=== PATIENT | female | born 1990 | race Asian ===

== ENCOUNTER 2020-12-09 11:47 | Emergency (ER) | payer OTHER ==
[~2020-12-09] VITALS: Ht 154.9 cm; Wt 47.7 kg
[2020-12-09 12:03] VITALS: BP 121/73
== END 2020-12-09 12:47 | disposition home or self-care (01) ==
LOC: ED 12:40
DX: Z20.822 Contact with and (suspected) exposure to COVID-19 (principal)
CPT/HCPCS: 99283; U0003; U0005